=== PATIENT | female | born 1945 | race Caucasian/White ===

== ENCOUNTER 2020-12-14 12:06 | Emergency (ER) | payer MEDICARE ==
--- NOTE | 2020-12-14 13:43 | Emergency Department Report ---
ED General Adult HPI - General Stated complaint: HEIDI/COLON CA STAGE 4/SEPTIC Time Seen by Provider: 12/14/20 13:38 - History of Present Illness Initial comments: Patient is 75 years old female with history of stage IV colon cancer. Patient brought to the emergency room via EMS from home accompanied by her . Patient stated that she has been having difficulty breathing for the last 3 days. Patient also found to be febrile with a temperature of 100.2. Patient supposed to start on hospice today. Patient called EMS before hospice nurse arrived to his home. He stated that he is unable to take care of her at home now and when he asked for help to send him the hospice nurse. He also stated that she has been having generalized lymphedema. Patient is obtunded and not responding to voice stimuli. Vital signs stable except for oxygen saturation initially was 88% on room air and improved to 95% on 2 L nasal cannula. - Related Data Allergies Allergy/AdvReac Type Severity Reaction Status Date / Time peanut Allergy Unknown Verified 12/14/20 14:12 ED Review of Systems ROS: Stated complaint: HEIDI/COLON CA STAGE 4/SEPTIC Other details as noted in HPI Comment: All other systems reviewed and negative Constitutional: fever Respiratory: shortness of breath. denies: cough Cardiovascular: denies: chest pain, palpitations Gastrointestinal: nausea. denies: abdominal pain, vomiting Musculoskeletal: denies: back pain Neurological: weakness ED Physical Exam - General General appearance: obtunded - Head Head exam: Present: atraumatic, normocephalic, normal inspection - Eye Eye exam: Present: normal appearance - ENT ENT exam: Present: normal exam - Neck Neck exam: Present: normal inspection, full ROM. Absent: tenderness, meningismus - Respiratory Respiratory exam: Present: normal lung sounds bilaterally - Cardiovascular Cardiovascular Exam: Present: regular rate, normal rhythm, normal heart sounds - GI/Abdominal GI/Abdominal exam: Present: soft, normal bowel sounds. Absent: distended, tenderness, guarding, rebound, rigid, mass, bruit, pulsatile mass, hernia - Extremities Exam Extremities exam: Present: pedal edema - Back Exam Back exam: Present: normal inspection. Absent: CVA tenderness (R), CVA tenderness (L) - Neurological Exam Neurological exam: Present: altered - Psychiatric Psychiatric exam: Present: flat affect - Skin Skin exam: Present: warm ED Course Vital Signs 0512/14/20 12/14/20 13:48 14:16 14:30 Temperature Pulse Rate 93 H 91 H 92 H Respiratory 17 16 20 Rate Blood Pressure 136/54 136/54 O2 Sat by Pulse 91 96 97 Oximetry 12/14/20 14:56 Temperature 97.5 F L Pulse Rate Respiratory Rate Blood Pressure O2 Sat by Pulse Oximetry ED Medical Decision Making - Lab Data Result diagrams: 12/14/20 14:05 12/14/20 14:05 - EKG Data -: EKG Interpreted by Me Rate: normal - EKG Data Interpretation: no acute changes - Radiology Data Radiology results: report reviewed - Medical Decision Making Patient is 75 years old female with history of stage IV colon cancer. Patient brought to the emergency room via EMS from home accompanied by her . Patient stated that she has been having difficulty breathing for the last 3 days. Patient also found to be febrile with a temperature of 100.2. Patient supposed to start on hospice today. Patient called EMS before hospice nurse arrived to his home. He stated that he is unable to take care of her at home now and when he asked for help to send him the hospice nurse. He also stated that she has been having generalized lymphedema. Patient is obtunded and not responding to voice stimuli. Vital signs stable except for oxygen saturation initially was 88% on room air and improved to 95% on 2 L nasal cannula. Labs reviewed and showed significantly elevated BNP with a new onset CHF. Chest x-ray showed bilateral pulmonary effusion. Patient received Lasix 40 mg[address] Patient discussed with Dr. Chilel, he stated that he is coming down to evaluate the patient for disposition. Critical Care Time: Yes Critical care time in (mins) excluding proc time.: 30 Critical care attestation.: If time is entered above; I have spent that time in minutes in the direct care of this critically ill patient, excluding procedure time. ED Disposition Clinical Impression: Acute respiratory failure, New onset of congestive heart failure Disposition: OP ADMIT IP TO THIS HOSP Is pt being admited?: Yes Condition: Stable
--- NOTE | 2020-12-14 14:05 | XRay Report ---
CHEST 1 VIEW INDICATION / CLINICAL INFORMATION: Dyspnea. COMPARISON: None available. FINDINGS: SUPPORT DEVICES: Right central venous line HEART / MEDIASTINUM: No significant abnormality. LUNGS / PLEURA: Moderate-sized bilateral pleural effusions with probable atelectasis No pneumothorax. ADDITIONAL FINDINGS: No significant additional findings. IMPRESSION: Moderate-sized bilateral pleural effusions with atelectasis Signer Name: Juanjo AMAYA Signed: 12/14/2020 2:01 PM Workstation Name: [id number]
[2020-12-14 14:37] LABS: Hematocrit 25.3 % (30.3-42.9); Hemoglobin 8.7 gm/dl (10.1-14.3); Mean Corpuscular HGB Conc 35 % (30-34); Mean Corpuscular Volume 101 fl (79-97); Platelet Count 227 K/mm3 (140-440); Red Blood Count 2.51 M/mm3 (3.65-5.03)
[2020-12-14 14:52] LABS: INR 1.29 (0.87-1.13)
[2020-12-14 15:07] LABS: Blood Urea Nitrogen 31 mg/dL (7-17); Calcium 8.7 mg/dL (8.4-10.2); Hemolysis Index 3
[2020-12-14 15:09] LABS: BUN/Creatinine Ratio 62
[2020-12-14 15:13] LABS: Bilirubin,Urine NEG (Negative); Blood,Urine NEG (Negative); Color,Urine Yellow (Yellow); Granular Casts,Urine 8 /LPF; Mucus,Urine FEW /HPF; Protein,Urine <15 mg/dL mg/dL (Negative); Urobilinogen,Urine < 2.0 mg/dL (<2.0); WBC,Urine < 1.0 /HPF (0.0-6.0)
[2020-12-14] MEDS ORDERED: FUROSEMIDE 40 MG/4 ML INJ IV ONE (15:23)
[2020-12-14 16:06] LABS: Chol/HDL Ratio 3.01 %
[2020-12-14 16:27] LABS: Anisocytosis 1+; Total Cells Counted 100
[2020-12-14] MEDS ORDERED: HYDROmorphone 1 MG/1 ML INJ IV ONE (16:57)
--- NOTE | 2020-12-14 17:01 | History and Physical Report ---
History of Present Illness Chief complaint: She is sick History of present illness: 75 YO Female with Colon Cancer Stage 4 with Metastatic Disease, Encephalopathy, Debility who is bedbound, Nonambulatory with a Pallative Performance Score of 30% who requires 6/6 assistance with ADL's presents to ED for evaluation. Aman hood is lethargic/stuporous with diminished cognition at the time my evaluation is unable to provide history. Patient is at bedside during exam and interview and provides history. Patient reports that patient has experienced progressive weakness, decreased interaction with family, and diminished cognition over the past 3 days with persistently worsening symptoms over the same timeframe. Patient seen and evaluated by [facility] and is pending a nursing visit for care. EMS was notified and upon arrival the patient was found to be in distress and subsequently transported to [facility] for further care and evaluation of the aforementioned symptoms. The patient was seen and e valuated in the emergency department. All lab and imaging studies reviewed. Patient found to have metastatic colon cancer, uncontrolled pain, as well as metabolic encephalopathy. The patient is found to be terminally ill with a prognosis of less than 6 months of the illness runs its expected course. [facility] hospice notified and prepared to admit patient patient to hospice care. Patient prognosis discussed. Advance care planning conducted in ED. Patient informed of patient poor prognosis and elects to have patient discharged home with home hospice care under the care of the [facility] medical safety director. Past History Past Medical History: cancer, other (See HPI) Past Surgical History: No surgical history, Other (Reviewed) Social history: , lives with family Family history: hypertension Medications and Allergies Allergies Allergy/AdvReac Type Severity Reaction Status Date / Time peanut Allergy Unknown Verified 12/14/20 14:12 Review of Systems ROS unobtainable: due to mental status Exam - Constitutional Vitals: Temp Pulse Resp BP Pulse Ox 97.5 F L 92 H 20 136/54 97 12/14/20 14:56 12/14/20 14:30 12/14/20 14:30 12/14/20 14:30 12/14/20 14:30 General appearance: Present: mild distress, cachectic, disheveled - EENT Eyes: Present: PERRL ENT: hearing decreased - Neck Neck: Present: supple - Respiratory Respiratory effort: labored Respiratory: bilateral: diminished, rhonchi - Cardiovascular Heart Sounds: Present: S1 & S2. Absent: rub, click - Extremities Extremity abnormal: edema Peripheral Pulses: within normal limits - Abdominal General gastrointestinal: Present: soft, tender, non-distended Female genitourinary: Present: normal - Integumentary Integumentary: Present: clear, dry, clammy, decreased turgor - Musculoskeletal Musculoskeletal: generalized weakness - Psychiatric Psychiatric: no appropriate mood/affect, no intact judgment & insight, no memory intact - Neurologic Neurologic: CNII-XII intact, no focal deficits, moves all extremities, no gait normal HEART Score - HEART Score Troponin: Troponin T 0.044 ng/mL (0.00-0.029) H 12/14/20 14:05 Results - Labs CBC & Chem 7: 12/14/20 14:05 12/14/20 14:05 Labs: Abnormal lab results 12/14/20 12/14/20 12/14/20 Range/Units 14:05 14:05 14:05 RBC 2.51 L (3.65-5.03) M/mm3 Hgb 8.7 L (10.1-14.3) gm/dl Hct 25.3 L (30.3-42.9) % MCV 101 H (79-97) fl MCH 35 H (28-32) pg MCHC 35 H (30-34) % RDW 22.0 H (13.2-15.2) % Seg Neuts % (Manual) 92.0 H (40.0-70.0) % Lymphocytes % (Manual) 4.0 L (13.4-35.0) % Lymphocytes # (Manual) 0.3 L (1.2-5.4) K/mm3 PT (12.2-14.9) Sec. INR (0.87-1.13) Sodium 134 L (137-145) mmol/L Carbon Dioxide 21 L (22-30) mmol/L BUN 31 H (7-17) mg/dL Creatinine 0.5 L (0.6-1.2) mg/dL Glucose 147 H (65-100) mg/dL Troponin T 0.044 H (0.00-0.029) ng/mL NT-Pro-B Natriuret Pep (0-900) pg/mL Triglycerides 175 H (2-149) mg/dL Cholesterol 208 H (50-199) mg/dL HDL Cholesterol 69 H (40-59) mg/dL 12/14/20 12/14/20 Range/Units 14:05 14:05 RBC (3.65-5.03) M/mm3 Hgb (10.1-14.3) gm/dl Hct (30.3-42.9) % MCV (79-97) fl MCH (28-32) pg MCHC (30-34) % RDW (13.2-15.2) % Seg Neuts % (Manual) (40.0-70.0) % Lymphocytes % (Manual) (13.4-35.0) % Lymphocytes # (Manual) (1.2-5.4) K/mm3 PT 16.1 H (12.2-14.9) Sec. INR 1.29 H (0.87-1.13) Sodium (137-145) mmol/L Carbon Dioxide (22-30) mmol/L BUN (7-17) mg/dL Creatinine (0.6-1.2) mg/dL Glucose (65-100) mg/dL Troponin T (0.00-0.029) ng/mL NT-Pro-B Natriuret Pep 7801 H (0-900) pg/mL Triglycerides (2-149) mg/dL Cholesterol (50-199) mg/dL HDL Cholesterol (40-59) mg/dL Assessment and Plan - Patient Problems (1) Colon cancer metastasized to multiple sites Current Visit: Yes Status: Acute Plan to address problem: Patient found to be terminally ill and is appropriate for admission to hospice care. Advanced care planning conducted in ED. Prognosis discussed, diagnosis discussed. Patient elects to have patient mid to hospice care for comfort measures only. Additional 30 minutes dedicated to bedside patient care (2) Metabolic encephalopathy Current Visit: Yes Status: Acute Plan to address problem: Supportive care, pain control. (3) Uncontrolled pain Current Visit: Yes Status: Acute Plan to address problem: Dilaudid 2 mg IV now, morphine 4 mg IV every 4 hours as needed, 2 mg Dilaudid prior to transport home. (4) Acute respiratory failure Current Visit: Yes Status: Acute Plan to address problem: Supplemental oxygen, pulse oximetry, pain control. (5) Advance care planning Current Visit: Yes Status: Acute Plan to address problem: Disease education conducted, diagnosis discussed, prognosis discussed, patient acknowledges understanding and agreement with care plan, +30 minutes.
[2020-12-14] MEDS ORDERED: HYDROmorphone 1 MG/1 ML INJ IV PRN (19:07)
[2020-12-14 20:17] VITALS: BP 137/46
--- NOTE | 2020-12-15 13:34 | Electrocardiograph Report ---
[facility], [place] Test Date: 2020-12-14 Test Time: 13:52:59 Pat Name: CAMPOS GOODE Department: Room: Gender: F [employer] Scientist: JOVANNI : 1945 Requested By: JOSE CONDON Order Number: [id number] Reading MD: Farzad Monteiro Measurements Intervals [place] Rate: 90 P: NC: QRS: 63 QRSD: 69 T: 32 QT: 373 QTc: 456 Interpretive Statements Probably atrial fibrillation with well-controlled ventricular rate Low voltage, extremity and precordial leads No previous ECG available for comparison Electronically Signed On 12-15-2020 13:33:53 EDT by Farzad Monteiro
== END 2020-12-14 20:18 | disposition admitted as inpatient to this hospital (09) ==
LOC: ED 12:06
DX: I50.9 Heart failure, unspecified (principal); J96.20 Acute and chronic respiratory failure, unspecified whether with hypoxia or hypercapnia
CPT/HCPCS: 36415; 71045; 80048; 80061; 81001; 82140; 83880; 84484; 85007; 85025; 85610; 85730; 87040; 93005; 96374; 96375; 96376; 99291; J1170; J1940